=== PATIENT | male | born 1955 | race Caucasian/White ===

== ENCOUNTER → 2017-04-26 | Outpatient (CLI) | payer OTHER ==
[~2017-04-26] MED LIST: DARVOCET-N6 EACH/PAK OR; NAPROSYN 500MG500 MG PO; ROBAXIN-750750 MG PO; VITAMIN E 400400 IU PO
[2017-04-26 09:14] LABS: LYMPH # 1.6 K/mm3 (0.7-4.5); LYMPH % 15.8 % (10-50)
--- NOTE | 2017-04-26 09:35 | RADIOLOGY REPORT PS360 ---
CHEST(2 VIEWS-NOT PORTABLE) HISTORY: CAD,HTN,TOB USE ORDERING PHYSICIAN: Travis Paez MD PATIENT AGE: 61 years COMPARISON: 10/16/2007 FINDINGS: There has been an interval median sternotomy with CABG. Normal heart size. No evidence of CHF. There is mild coarsening of the bronchovascular and interstitial markings which may be related to smoking-related lung disease. No lobar consolidation or collapse. Degenerative changes are present in the thoracic spine. IMPRESSION: 1. Interval CABG. 2. Suspect smoking-related lung disease with chronic coarsening of the bronchovascular and interstitial markings 3. No acute finding
[2017-04-26 10:39] LABS: BILIRUBIN, INDIRECT 0.31 mg/dL (0-0.9); BUN 15 mg/dL (7-18)
[2017-04-26 10:42] LABS: GFR (ESTIMATED) 68 ML/MIN (>60)
--- NOTE | 2017-04-27 17:28 | RADIOLOGY REPORT PS360 ---
PROCEDURE: 2-D M-mode and color Doppler study INDICATIONS FOR THE TEST: Chest pain COPD Heart Murmur Tobacco Smoking+ Palpitations Fatigue Syncope Edema Hypertension+Diabetes Mellitus Rheumatic Fever SOB BELL+Obesity Hyperlipidemia+ Family History HD+ Additional History Hx of CABG 2014, bilateral endarterectomy PATIENT INFORMATION HEIGHT:70 WEIGHT: 223 GENDER: Male B/P: 186/110 2-D/M-MODE INTERPRETATION: 2-D MEASUREMENTS OBSERVED VALUES IN CMS Right Ventricular Dimension (RVDd) 2.9 Interventricular Septum (Thickness)(IVsd) 1.2 Left Ventricular Internal Dimensions(LVIDd) 4.4 Left Ventricular Posterior Wall (Thickness)(LVPWd) 1.2 Aortic Root 2.6 Aortic Cusp Separation 2.2 Left Atrial Dimensions (LAD) 4.3 2D 1. Left atrium is mildly enlarged, left ventricle is normal size, there is mild concentric left ventricular hypertrophy, visually estimated ejection fraction 40-45%, there appears to be moderate hypokinesis involving the mid to distal septum and anteroapical wall. Endocardial surfaces are poorly visualized due to poor acoustic windows. 2. The right atrium is normal size, right ventricle is mildly enlarged with normal contractility. 3. The aortic valve is minimally thickened and fibrosed. 4. The mitral and tricuspid valve leaflets are minimally thickened. 5. The pulmonic valve is poorly visualized. 6. No significant pericardial effusion noted. DOPPLER INTERROGATION: Doppler interrogation of the aortic, mitral and tricuspid valvular presence of mild mitral and tricuspid regurgitation, tricuspid regurgitant jet velocity is insufficient for calculation of the right ventricular systolic pressure, grade 1 diastolic dysfunction seen with tissue Doppler evidence of raised left atrial pressure. CONCLUSION: 1. Technically difficult study because of the patient's factor and poor acoustic windows 2. Mildly enlarged left atrium, normal left ventricular size, visually estimated ejection fraction 40-45% with multiple segmental wall motion abnormality described above, grade 1 diastolic dysfunction seen with tissue Doppler evidence of raised left atrial pressure. 3. Mild mitral and tricuspid regurgitation. 4. No significant pericardial effusion noted.
== END ==
LOC: RAD 08:34
PROVIDERS: Internal Medicine
DX: I25.10 Atherosclerotic heart disease of native coronary artery without angina pectoris (principal); I10 Essential (primary) hypertension; E78.5 Hyperlipidemia, unspecified; Z72.0 Tobacco use